=== PATIENT | female | born 1985 | race Caucasian/White ===

== ENCOUNTER 2016-12-18 15:04 | Observation (INO) | payer OTHER ==
[2016-12-18] MEDS ORDERED: LR 500 ML IV ONE (16:30)
[2016-12-18] MEDS ORDERED: LR 1,000 ML IV SCH (16:30)
[2016-12-18 16:49] LABS: ADD MORPH? NO; FRAGMENT RBC FLAG 0 (0-99); HEMATOCRIT 42.7 % (38.0-47.0); LIPEMIA HEMOLYSIS FLAG 90 (0-99); MEAN CELL HEMOGLOBIN CONCENTR. 35.1 g/dL (32.4-36.7); MEAN CELL VOLUME 93.8 fL (81.5-99.8); MEAN PLATELET VOLUME 10.5 fL (8.7-11.7); PLATELET CLUMPS FLAG 10 (0-99); PLATELET COUNT 241 10^3/uL (150-400); RED BLOOD CELL COUNT 4.55 10^6/uL (4.18-5.33); RED CELL DISTRIBUTION WIDTH 12.1 % (11.5-15.2)
[2016-12-18 17:11] LABS: % IMMATURE GRANULYOCYTES 1.9 % (0.0-1.1); ABSOLUTE IMMATURE GRANULOCYTES 0.26 10^3/uL (0.00-0.10); ADD DIFF? NO; ADD SCAN? NO; ATYPICAL LYMPHOCYTE FLAG 0 (0-99); LEFT SHIFT FLG 20 (0-99)
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
[2016-12-18 18:09] LABS: COLOR PALE YELLOW; LEUKOCYTE ESTERASE,URINE NEGATIVE (NEGATIVE); NITRITE,URINE NEGATIVE (NEGATIVE)
[2016-12-18] MEDS ORDERED: NIFEdipine 10 MG CAP ONE (20:31)
[2016-12-18] MEDS ORDERED: NIFEdipine 10 MG CAP PO ONE (20:45)
--- NOTE | 2016-12-18 21:12 | OBPROG ---
OBG Progress Note Assessment/Plan: Assessment: 31 y/o @ 29 1/7 weeks with pre-term contractions without active cervical change Plan: Pt responded to 1 dose of PO Procardia now. She has a reassuring cervical length, but continues to have contractions. Her cervix was bleeding too much for an assessment of FFN. We will keep her overnight on continuous toco and if she has > 5 contractions/ hour will give Indocin. Consult with MFM in am. 12/18/16 21:13 Subjective: Pt is feeling some cramping but is unaware of contractions. No LOF, continued VB or other complaints. Objective: 12/18/16 16:28 - SVE Dilation (cm): 1 Effacement (%): Less than 50 Station: -3 Current Contraction Pattern: Irregular (occ 22/hour, some 6x/ hour) FHR (bpm): 150 FHR Pattern Variability: Moderate FHR Category: 1 (AGA) Membranes: Intact ICD10 Worksheet Patient Problems: Problems Problem Status Onset Hx of PTL ( labor), current Acute
[2016-12-18] MEDS ORDERED: ACETAMINOPHEN 500 MG TAB PO PRN (21:17)
[2016-12-18] MEDS ORDERED: CALCIUM CARBONATE 500 MG CHEWABLE TAB PO ONE (21:17)
[2016-12-18] MEDS ORDERED: diphenhydrAMINE 25 MG CAP PO PRN (21:17)
[2016-12-18] MEDS ORDERED: INDOMETHACIN 25 MG CAP PO ONE (22:00)
[2016-12-18] MEDS: CALCIUM CARBONATE 500 MG CHEWABLE TAB PO PRN (22:06)
[2016-12-19] MEDS: CALCIUM CARBONATE 500 MG CHEWABLE TAB PO PRN ×2 (00:31→23:49)
[2016-12-19] MEDS: INDOMETHACIN 25 MG CAP PO SCH ×3 (03:57→16:02)
[2016-12-19] MEDS ORDERED: BETAMETHASONE IM SYRINGE IM ONE (11:00)
--- NOTE | 2016-12-19 11:01 | OBPROG ---
OBG Progress Note Assessment/Plan: Assessment: IUP at 29w2d with cervical dilation - stable over 6 hrs yesterday on indocin for uterine irritability cx 3.1 cm per u/s yesterday Plan: will get BMZ started today by MFM consult on phone. Will have formal consult this afternoon about plan planning FFN tonight after 9pm - 24 hrs after exam cont indocin until second BMZ 12/19/16 10:57 Subjective: Pt doing well. Cramps much less than yesterday. No further bld last noc. urinating fine. GFM. some mild nausea after Indocin doses. Objective: 12/18/16 16:28 Current Contraction Pattern: Irregular (uterine irritability) FHR (bpm): 140 (reassuring monitoring) FHR Pattern Variability: Moderate Membranes: Intact ICD10 Worksheet Patient Problems: Problems Problem Status Onset Hx of PTL ( labor), current Acute
[2016-12-19] MEDS: DOCUSATE SODIUM 100 MG CAP PO PRN ×2 (11:52→22:12)
[2016-12-19] MEDS ORDERED: INDOMETHACIN 25 MG CAP PO ONE (22:15)
[2016-12-20] MEDS: INDOMETHACIN 25 MG CAP PO SCH (06:03)
[2016-12-20] MEDS ORDERED: BETAMETHASONE IM SYRINGE IM ONE (11:00)
--- NOTE | 2016-12-20 19:01 | OBPROG ---
OBG Progress Note Assessment/Plan: Assessment: iup at 29 3/7 weeks with contractions s/p bmz and procardia and indocin status reasuring Plan: discharge instructions precautions and kick counts 12/20/16 18:58 Subjective: patient is doing well. denies vaginal bleeding or loss of fluid. occasional contractions noted. long discssion about mangement, precautions and kick counts. Objective: 12/18/16 16:28 Current Contraction Pattern: Other (Specify) (rare) FHR Pattern Variability: Moderate FHR Category: 1 Membranes: Intact ICD10 Worksheet Patient Problems: Problems Problem Status Onset Hx of PTL ( labor), current Acute contractions Acute
--- NOTE | 2016-12-21 00:33 | GDS ---
[f rep st] DISCHARGE SUMMARY ADMISSION DIAGNOSIS: Intrauterine at 29-1/7 weeks' gestation with contractions. DISCHARGE DIAGNOSIS: Intrauterine at 29-1/7 weeks' gestation with arrest of contr actions, status post betamethasone. HOSPITAL COURSE: Patient is a 31-year-old 2, para 2-0-1-0, who presented to the office on 12/18 with complaint of increased cramping. Her cervix was 1-2 cm but long. Cervical length ultraso und was greater than 3.5 cm. She was observed overnight. She did receive betamethasone x2. She di d get started on Indocin. Her contractions substantially spaced out, and decision was made to send the patient home after she was not having any more contractions. labor precautions and kick counts were extensively reviewed with the patient and her . She will take it easy over the next couple days and return to work because her contractions have completely spaced and her cervix i s long. She will return to work on Friday and will reassess if her contractions are increasing in f requency or intensity. Patient will be discharged to home and was instructed to follow up in the of hai on Friday for her scheduled appointment or sooner if indicated. /[id number]/MODL
== END 2016-12-20 15:40 | disposition home or self-care (01) ==
LOC: FLD 15:04
PROVIDERS: ADMIT Obstetrics & Gynecology; ATTEND Obstetrics & Gynecology
DX: O60.03 Preterm labor without delivery, third trimester (principal); Z3A.29 29 weeks gestation of pregnancy
CPT/HCPCS: 59025; 76805; 76815; G0378; J0702

== ENCOUNTER 2017-02-25 16:35 | Inpatient (IN) | payer OTHER ==
[2017-02-25] MEDS ORDERED: OLIVE OIL 118 ML BTL ONE (18:47)
[2017-02-25] MEDS ORDERED: LIDOCAINE 1% 300 MG/30 ML SDV ONE (18:47)
[2017-02-25] MEDS ORDERED: AMMONIA AROMATIC 1 EACH AMP IH ONE (18:48)
[2017-02-25] MEDS ORDERED: OXYTOCIN 10 UNIT/ML VIAL ONE (18:48)
[2017-02-25] MEDS ORDERED: TERBUTALINE SULFATE 1 MG/ML VIAL ONE (18:48)
[2017-02-25] MEDS ORDERED: MISOPROSTOL 200 MCG TAB ONE (18:48)
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
--- NOTE | 2017-02-25 23:03 | OBPROG ---
OBG Labor Progress Note Assessment/Plan: Assessment: IUP at 39 wks active labor with increased pain after AROM Plan: begin pushing 02/25/17 22:59 Subjective: Pt now reporting more discomfort. Feeling pressure and desires to push. - SVE Dilation (cm): 10 Effacement (%): 100 Station: 0 Dilation Complete Date: 02/25/17 Dilation Complete Time: 22:45 Sharma Current Contraction Pattern: Regular FHR (bpm): 130 FHR Pattern Variability: Moderate FHR Category: 1 Membranes: AROM Amniotic Fluid Color: Clear - Procedures Non-surgical Procedures: Amniotomy Oxytocin Orders Assessment - Pre-Induction/Augmentation Assessment Gestational Age: 39 week(s) and 0 day(s) ICD10 Worksheet Patient Problems: Problems Problem Status Onset Normal labor Acute - ICD10 Problem Qualifiers (1) Normal labor
[2017-02-25] MEDS ORDERED: TERBUTALINE SULFATE 1 MG/ML VIAL IV PRN (23:07)
[2017-02-25] MEDS ORDERED: LR 1,000 ML IV PRN (23:07)
[2017-02-25] MEDS ORDERED: OLIVE OIL 118 ML BTL MISC PRN (23:07)
[2017-02-25] MEDS ORDERED: OXYTOCIN/RINGERS LACTATE 1,000 ML IV PRN (23:07)
[2017-02-25] MEDS ORDERED: EPSOM SALT 454 GM TP PRN (23:07)
--- NOTE | 2017-02-25 23:07 | OBGCSDC ---
General Delivery Information - General Info : 2 Para: 1 Abortions: 1 Delivery Physician/CNM: Yesica Turpin Admission Date: 02/25/17 Vaginal - Diagnosis Labor: Spontaneous Presentation at Delivery: Vertex Rupture of Membranes Type: Artificial Amniotic Fluid Color: Clear Laceration: 1st Degree Repair: 3-0, Vicryl Delivery Events: None - Operations/Procedures Non-surgical Procedures: Amniotomy L&D Analgesia/Anesthesia Type: Local (1 %lidocaine - 14 cc) - Hospital Course Antepartum: ctxns at 29 wks, hosp for couple days but stable thereafter. Intrapartum: Aware of increased tightness after 15:00 and would stop walking at work - seen at office and was 5 cm. BOWI and bloody show after arrival on L&D. 1 hour pushing - very high pain tolerance with - Delivery Non-surgical Procedures: Amniotomy Data Sharma Delivery Date: 02/25/17 Delivery Time: 23:43 DORON: 03/04/17 Gestational Age: 39 week(s) and 1 day(s) Sex of Infant: Female Score (1 Min): 8 Score (5 Min): 9 Discharge Information - Discharge Information Discharge Medications: Ibuprofen, Vitamins
[2017-02-26] MEDS ORDERED: ACETAMINOPHEN 325 MG TAB PO PRN (00:37)
[2017-02-26] MEDS ORDERED: HYDROCODONE/APAP 5/325 TAB PO PRN (00:37)
[2017-02-26] MEDS: IBUPROFEN 600 MG TAB PO PRN ×4 (00:42→19:04)
--- NOTE | 2017-02-26 00:43 | OBDEL ---
Info Type: Vaginal GBS+: No Indications for Delivery: Spontaneous Labor Vaginal Delivery - Labor and Delivery Onset of Contractions Date: 02/25/17 Onset of Contractions Time: 15:00 Onset of Contractions Type: Spontaneous Rupture of Membranes Date: 02/25/17 Rupture of Membranes Time: 19:48 Rupture of Membranes Type: Artificial Amniotic Fluid Color: Clear Dilation Complete Date: 02/25/17 Dilation Complete Time: 22:45 Placenta Delivery Date: 02/25/17 Placenta Delivery Time: 23:52 Total Hours of Labor: 8 Non-surgical Procedures: Amniotomy Laceration: 2nd Degree (right vaginal wall and perineal) Repair: 3-0 Vaginal Sponge Count Correct: Yes Vaginal Needle Count Correct: Yes Vaginal Sweep Performed: Yes EBL: 400 Delivery Events: None - Medications Labor Augmentation/Induction Methods Used: None Operative Report - Delivery Surgeon: Yesica Turpin Data Sharma Delivery Date: 02/25/17 Delivery Time: 23:43 DORON: 03/04/17 Gestational Age: 39 week(s) and 1 day(s) Sex of Infant: Female Score (1 Min): 8 Score (5 Min): 9 ICD10 Worksheet Patient Problems: Problems Problem Status Onset (spontaneous vaginal delivery) Acute - ICD10 Problem Qualifiers (1) Normal labor
[2017-02-26 01:16] LABS: % IMMATURE GRANULYOCYTES 1.1 % (0.0-1.1); ABSOLUTE IMMATURE GRANULOCYTES 0.16 10^3/uL (0.00-0.10); ADD DIFF? NO; ADD MORPH? NO; ADD SCAN? NO; ATYPICAL LYMPHOCYTE FLAG 0 (0-99); FRAGMENT RBC FLAG 0 (0-99); HEMATOCRIT 39.9 % (38.0-47.0); HEMOGLOBIN 13.6 g/dL (12.6-16.3); LEFT SHIFT FLG 10 (0-99); LIPEMIA HEMOLYSIS FLAG 90 (0-99); MEAN CELL HEMOGLOBIN CONCENTR. 34.1 g/dL (32.4-36.7); MEAN CELL VOLUME 96.8 fL (81.5-99.8); MEAN PLATELET VOLUME 11.1 fL (8.7-11.7); PLATELET CLUMPS FLAG 10 (0-99); PLATELET COUNT 212 10^3/uL (150-400); RED BLOOD CELL COUNT 4.12 10^6/uL (4.18-5.33); RED CELL DISTRIBUTION WIDTH 12.4 % (11.5-15.2)
--- NOTE | 2017-02-26 08:38 | OBPP ---
Progress Note Assessment/Plan: Assessment: s/p PPD # 1 - pt is stable Plan: Continue routine pp care Encourage ambulation consult today Plan for d/c home 02/2702/26/17 08:34 Subjective: Pt seen and examined. Doing well, eating breakfast. Minimal cramping, relief with Motrin. Moderate lochia. BF is not going well, difficulty with latching. Objective: 02/25/17 19:24 Patient ABO/Rh A POSITIVE 02/25/17 19:24 Temp Pulse Resp BP Pulse Ox 36.9 C 85 16 100/58 L 96 02/26/17 04:50 02/26/17 04:50 02/26/17 04:50 02/26/17 04:50 02/26/17 04:50 Uterine Position/Fundal Height: Umbilicus -2 Uterine Tone: Firm Physical Exam - Physical Exam General Appearance: WD/WN, alert, no apparent distress Respiratory: lungs clear, normal breath sounds Cardiac/Chest: regular rate, rhythm Abdomen: normal bowel sounds, non-tender, soft, flatus (+) Extremities: non-tender, normal inspection Skin: normal color, warm/dry Neuro/Psych: alert, normal mood/affect, oriented x 3
[2017-02-26] MEDS: DOCUSATE SODIUM 100 MG CAP PO PRN (19:04)
[2017-02-27] MEDS: IBUPROFEN 600 MG TAB PO PRN ×4 (00:53→20:05)
[2017-02-27] MEDS: DOCUSATE SODIUM 100 MG CAP PO PRN ×2 (08:47→20:05)
--- NOTE | 2017-02-27 12:56 | OBPP ---
Progress Note Assessment/Plan: Assessment: 31 y/o PPD #1.5 s/p doing well. Plan: Will call in Rx APNO cream and continue good support. D/c home tomorrow. 02/27/17 12:55 Subjective: Pt is doing well today. She has cramping and perineal pain controlled with Ibuprofen. Min lochia, [place] reg diet and ambulating and voiding without difficulty. Baby is doing well, she is working on a good latch and has sore nipples. They would like to stay until tomorrow for support. Objective: 02/27/17 06:00 Patient ABO/Rh A POSITIVE 02/25/17 19:24 Temp Pulse Resp BP Pulse Ox 36.6 C 92 16 117/79 97 02/27/17 08:59 02/27/17 08:59 02/27/17 08:59 02/27/17 08:59 02/27/17 08:59 Uterine Position/Fundal Height: Umbilicus -2 Uterine Tone: Firm Physical Exam - Physical Exam General Appearance: WD/WN, alert, no apparent distress Neck: non-tender, full range of motion, supple Respiratory: chest non-tender, lungs clear, normal breath sounds Cardiac/Chest: regular rate, rhythm Abdomen: normal bowel sounds Extremities: swelling (1+), Cindy's sign (neg)
[2017-02-27 20:22] VITALS: O2SAT 98
[2017-02-28] MEDS: IBUPROFEN 600 MG TAB PO PRN ×2 (02:01→09:02)
[2017-02-28 08:52] VITALS: BP 144/85; PULSE 84; RESP 17; TEMP 98
--- NOTE | 2017-02-28 10:53 | OBPP ---
Progress Note Assessment/Plan: Assessment: p1 ppd# 2 s/p uncomplicated post course breast feeding - apno rx written Plan: routine post care and discharge instructions 02/28/17 10:51 Subjective: patient is doing well. pain is well controlled. normal lochia. breast feeding is going better. apno nipple cream ordered. denies headache and changes in vision. ready to go home. mood great. Objective: 02/27/17 06:00 Patient ABO/Rh A POSITIVE 02/25/17 19:24 Temp Pulse Resp BP Pulse Ox 36.7 C 84 17 144/85 H 98 02/28/17 08:00 02/28/17 08:00 02/28/17 08:00 02/28/17 08:00 02/28/17 08:00 Physical Exam - Physical Exam General Appearance: WD/WN, alert, no apparent distress Neck: non-tender, full range of motion Cardiac/Chest: normal peripheral pulses, regular rate, rhythm Abdomen: normal bowel sounds, hypoactive bowel sounds, non-tender, distended, other (fundus firm and non tender) Extremities: normal range of motion, non-tender, normal inspection, normal capillary refill Skin: normal color, warm/dry Neuro/Psych: no motor/sensory deficits, alert, normal mood/affect, oriented x 3
--- NOTE | 2017-02-28 11:01 | OBGCSDC ---
General Delivery Information - General Info : 2 Para: 1 Abortions: 1 Delivery Physician/CNM: Yesica Turpin Admission Date: 02/25/17 Labs: Patient ABO/Rh A POSITIVE 02/25/17 19:24 Hct 36.5 % (38.0-47.0) L 02/27/17 06:00 Vaginal - Diagnosis Labor: Spontaneous Presentation at Delivery: Vertex Rupture of Membranes Type: Artificial Amniotic Fluid Color: Clear Laceration: 1st Degree Repair: 3-0, Vicryl Delivery Events: None - Operations/Procedures Non-surgical Procedures: Amniotomy L&D Analgesia/Anesthesia Type: Local - Hospital Course Antepartum: labor at 32 weeks - on procarida until 36 weeks. was 5 cm in office with occasional contractions at 39 weeks. lives an hour away. admitted for expectant management and possible augmentation. Intrapartum: was 5 cm. arom. good progress. : uncomplicated post course. working on breast feeding. castellano for flat nipples. apno nipple cream. normal lochia. - Delivery Non-surgical Procedures: Amniotomy L&D Analgesia/Anesthesia Type: Local Data Sharma Delivery Date: 02/25/17 Delivery Time: 23:43 DORON: 03/04/17 Gestational Age: 39 week(s) and 3 day(s) Sex of : Female Weight (gm): 3490 g Score (1 Min): 8 Score (5 Min): 9 Discharge Information - Discharge Information Condition: Good Instruction/Follow Up: See Instruction Sheet, Four Weeks (mood check), Six Weeks (post visit) Discharge Physician/CNM: Roxie Cuello
== END 2017-02-28 13:00 | disposition home or self-care (01) | DRG 775 ==
LOC: FLD 16:35 → OBSVTOIN 16:35 → FOB 02-26 02:21
PROVIDERS: ADMIT Obstetrics & Gynecology; ATTEND Obstetrics & Gynecology
PROC: 0HQ9XZZ Repair Perineum Skin, External Approach (ICD-10-PCS; principal; 2017-02-25)
PROC: 10E0XZZ Delivery of Products of Conception, External Approach (ICD-10-PCS; principal; 2017-02-25)
PROC: 3E033VJ Introduction of Other Hormone into Peripheral Vein, Percutaneous Approach (ICD-10-PCS; principal; 2017-02-25)
CPT/HCPCS: G0463; J3105

== ENCOUNTER → 2017-03-06 | Outpatient (CLI) | payer OTHER | LOC: FLACT 09:51 | PROVIDERS: ATTEND Obstetrics & Gynecology | DX: Z39.1 Encounter for care and examination of lactating mother (principal) | CPT/HCPCS: G0463 ==